=== PATIENT | male | born 1965 | race Caucasian/White ===

== ENCOUNTER 2020-11-16 07:27 | Emergency (ER) | payer OTHER, SELFPAY ==
--- NOTE | ~2020-11-16 | XR_ITS ---
EXAMINATION: XR chest 1V portable INDICATION: Shortness of breath and cough TECHNIQUE: Portable AP chest at 0821 hours COMPARISON: None available FINDINGS: There are minimal airspace opacities of the lung bases. No pleural effusion or pneumothorax is identified. The cardiomediastinal silhouette is normal. IMPRESSION: 1. Minimal airspace opacities of the lung bases, consistent with atelectasis versus pneumonia. Reviewed, dictated and finalized at location A. IMPRESSION: 1. Minimal airspace opacities of the lung bases, consistent with atelectasis ve rsus pneumonia.
[2020-11-16 07:33] VITALS: BP 183/105; PULSE 86; RESP 18; TEMP 36.6; O2SAT 98
--- NOTE | 2020-11-16 07:45 | ED.URI ---
HPI - URI/Sore Throat General Chief Complaint: Upper Respiratory Infection Stated Complaint: cough, sore throat, runny nose Time Seen by Provider: 11/16/20 07:45 Source: patient and RN notes reviewed Mode of arrival: ambulatory Limitations: no limitations History of Present Illness HPI Narrative: 54 years old white male presents with coughing, sore throat, headache, body aches started yesterday. Patient is not vaccinated for COVID-19. Patient does not know if he been exposed to anybody with Covid or not. Patient denies any fever, chills, nausea, vomiting, chest pain or shortness of breath. Related Data Allergies Allergy/AdvReac Type Severity Reaction Status Date / Time Careless [place] Allergy Mild POISON Uncoded 11/16/20 07:44 FREDERICK SCHAFER AND MAXI Review of Systems Review of Systems: CONSTITUTIONAL: Denies fever, chills, or sweats. EYES: Denies visual changes, redness, or discharge. ENT: Denies rhinorrhea, congestion, sore throat, or otalgia. CARDIOVASCULAR: Denies chest pain, palpitations, or edema. RESPIRATORY: Denies cough or dyspnea. GASTROINTESTINAL: Denies abdominal pain, nausea, vomiting, or diarrhea. GENITOURINARY: Denies dysuria or hematuria. SKIN: Denies rash or itching. MUSCULOSKELETAL: Denies back pain, joint pain, or myalgia. NEUROLOGIC: Denies headache, numbness, or weakness. PSYCHIATRIC: Denies anxiety or depression. Exam Narrative: General appearance: Well-developed, well-nourished Skin: Normal color Head: Normocephalic, nontraumatic Eyes: Clear conjunctiva ENT: Oropharynx normal, ears normal, nose normal Neck: Supple, nontender Chest and respiratory: Airway patent, no respiratory distress, no accessory muscle use Heart: Regular rate/rhythm Abdomen: Soft, nontender, no organomegaly, quiet bowel sounds Neurologic: Alert and oriented ?3, BANK GUARD is normal as tested, no gross motor deficit Course Course Emergency Course: Stable Vital Signs Vital signs: Vital Signs Temperature 36.6 C 11/16/20 07:33 Pulse Rate 86 11/16/20 07:33 Respiratory Rate 18 11/16/20 07:33 Blood Pressure 183/105 H 11/16/20 07:33 Pulse Oximetry 98 11/16/20 07:33 Temperature 36.6 C 11/16/20 07:33 Pulse Rate 86 11/16/20 07:33 Respiratory Rate 18 11/16/20 07:33 Blood Pressure 183/105 H 11/16/20 07:33 Pulse Oximetry 98 11/16/20 07:33 MDM - URI/Sore Throat MDM Narrative Medical decision making narrative: Upper respiratory viral infection Lab Data Labs: Lab Results 11/16/20 Range/Units 07:53 SARS-CoV-2 RNA (RT-PCR) Pending ABG Data ABG results: 11/16/20 08:09 Puncture Site Right brachial ABG pH 7.393 ABG pCO2 36.6 ABG pO2 78.6 L ABG PO2/FiO2 Ratio 3.74 ABG HCO3 21.8 L ABG O2 Saturation 95.6 ABG O2 Content 21.5 ABG Base Excess -2.5 A-a Gradient 27.3 Oxyhemoglobin 92.7 Total Hemoglobin 16.5 O2 Delivery Device Room air O2 Liters/Min Not Reportable FiO2 21 Imaging Data Radiologist's impression: Impressions Chest X-Ray 11/16/20 08:30 IMPRESSION: 1. Minimal airspace opacities of the lung bases, consistent with atelectasis versus pneumonia. Critical Care Time Critical Care Time Critical Care Time: No Discharge Plan Discharge Clinical Impression: Upper respiratory infection Qualifiers: URI type: unspecified viral URI Qualified Code(s): J06.9 - Acute upper respiratory infection, unspecified Patient Disposition: Home, Self-Care Condition: Stable Instructions: Antibiotic Form, Upper Respiratory Infection (ED) Additional Instructions: Return if symptoms are worsening , call your family physician for appointment, take Tylenol as
[2020-11-16 08:20] LABS: Alveolar/Arterial O2 Gradient 27.3 mmHg; Base Excess ABG -2.5 mEq/l (+/-2.0); Fractional Inspired Oxygen 21 %; HCO3 ABG 21.8 mEq/l (22.0-26.0); Oxygen Content ABG 21.5 %vol (16.0-22.0); Oxygen Saturation ABG 95.6 % (95.0-100.0); Oxyhemoglobin 92.7 % THb (90.0-100.0); PCO2 ABG 36.6 mmHg (35.0-45.0); PO2 ABG 78.6 mmHg (80.0-100.0); PO2 FiO2 Ratio Arterial Blood 3.74 %; Total Hemoglobin 16.5 g/dL (12.0-18.0); pH ABG 7.393 (7.350-7.450)
[2020-11-16 08:21] LABS: Device ROOM AIR; Site Drawn RIGHT BRACHIAL
[2020-11-16 09:17] VITALS: BP 165/101; PULSE 91; RESP 21; O2SAT 98
[2020-11-16 09:19] VITALS: BP 165/101; PULSE 91; RESP 21; O2SAT 98
[2020-11-16 17:52] LABS: SARS-CoV-2 RNA PCR Negative
== END 2020-11-16 09:24 | disposition home or self-care (01) ==
PROVIDERS: Emergency Provider Emergency Medicine
DX: J06.9 Acute upper respiratory infection, unspecified (principal); Z20.822 Contact with and (suspected) exposure to COVID-19; R91.8 Other nonspecific abnormal finding of lung field
CPT/HCPCS: 36600; 71045; 82805; 99283; C9803; U0003; U0005

== ENCOUNTER 2022-12-06 19:08 | Observation (INO) | payer OTHER, SELFPAY ==
[2022-12-06] VITALS (9 sets, daily range): BP systolic 123–191; BP diastolic 92–118; PULSE 81–100; RESP 13–23; TEMP 36.7; O2SAT 95–99
--- NOTE | ~2022-12-06 | XR_ITS ---
Portable chest x-ray Comparison: 11/16/2020 Clinical History: Chest pain Findings: Lungs are clear, without focal consolidation or pleural effusion. Cardiomediastinal silho uette is stable. Bones and soft tissues are unremarkable. Impression: Clear lungs. Reviewed, dictated and finalized at location . Impression: Clear lungs.
--- NOTE | ~2022-12-06 | CT_ITS ---
Clinical Indication: Dissection CT Scan of the Chest, Abdomen, and Pelvis with Contrast: Technique: Contiguous sections were acquired throughout the chest, abdomen, and pelvis after intraven ous administration of 100 cc of Omnipaque 350. Dose reduction technique was used on this scan by brina bermaning automated exposure control and iterative reconstruction technique. The dose-length product (DL P) was 916.95 mGy-cm. Findings: There is no evidence of any significant mediastinal, hilar or axillary lymphadenopathy. The mediastin al soft tissues appear normal. No aortic aneurysm or dissection. There is no evidence of pleural or pericardial effusion. The lungs are clear. No pulmonary nodules or infiltrates are noted. The liver, spleen, pancreas, gallbladder, adrenals and kidneys are within normal limits. No evidence of aortic aneurysm or dissection. No lymphadenopathy. No bowel obstruction or bowel wall thickening. There is no evidence to suggest acute appendicitis. Urinary bladder is unremarkable. No pelvic mass seen. No ascites. Impression: No significant abnormalities seen. No evidence for aortic dissection. Reviewed, dictated and finalized at [facility]. Impression: No significant abnormalities seen. No evidence for aortic dissection.
--- NOTE | 2022-12-06 19:08 | ECG_ITS ---
Measurements Intervals [place] Rate: 93 P: 33 MS: 195 QRS: -1 QRSD: 95 T: 74 QT: 343 QTc: 427 Interpretive Statements SINUS RHYTHM CANNOT RULE OUT SEPTAL INFARCT, AGE INDETERMINATE BORDERLINE ST-T WAVE ABNORMALITY- HIGH LATERAL LEADS ABNORMAL ECG NO PREVIOUS ECG AVAILABLE FOR COMPARISON Electronically Signed On 12-06-2022 20:57:48 CDT by Tigre Bhatia D.O.
--- NOTE | 2022-12-06 19:29 | PC.NURSE ---
Pt taken to a room, EDP notified of pt cc and VS.
--- NOTE | 2022-12-06 19:38 | PC.NURSE ---
VORB by BJORN Gold RN to give pt sublingual nitro x3 until chest pain is relieved. See notes for med administration.
--- NOTE | 2022-12-06 19:41 | PC.NURSE ---
Pt rated chest pain a 5 and stated that it is continuous.
[2022-12-06 19:45] LABS: Basophils Absolute Auto 0.1 K/mm3 (0.0-0.1); Basophils Percent Auto 0.6 % (0.2-1.2); Eosinophils Absolute Auto 0.4 K/mm3 (0-0.3); Eosinophils Percent Auto 2.6 % (0-4.4); Hematocrit 49.3 % (42.0-52.0); Hemoglobin 16.7 g/dL (14.0-18.0); Immature Granulocyte Absolute 0.07 K/mm3 (0.00-0.031); Immature Granulocyte Percent A 0.5 % (0-0.5); Lymphocytes Absolute Auto 1.76 K/mm3 (0.9-3.2); Lymphocytes Percent Auto 13.3 % (18.3-44.2); Mean Corpuscular HGB Conc 33.9 g/dl (32-36); Mean Corpuscular Hemoglobin 31.9 pg (26-34); Mean Corpuscular Volume 94.1 fl (80-100); Mean Platelet Volume 9.7 fl (7.4-10.4); Monocytes Percent Auto 7.4 % (2.6-8.5); Neutrophils Percent Auto 75.6 % (45.5-73.1); Platelet Count Result 276 k/mm3 (150-375); Red Blood Count 5.24 M/mm3 (4.6-6.20); White Blood Count 13.2 K/mm3 (4.5-10.0)
--- NOTE | 2022-12-06 19:47 | ECG_ITS ---
Measurements Intervals [place] Rate: 100 P: 45 [place]: 184 QRS: 18 QRSD: 97 T: 79 QT: 336 QTc: 434 Interpretive Statements SINUS TACHYCARDIA CANNOT RULE OUT SEPTAL INFARCT, AGE INDETERMINATE BORDERLINE ST-T WAVE ABNORMALITY- HIGH LATERAL LEADS ABNORMAL ECG COMPARED TO ECG 12/06/2022 19:12:27 SINUS TACHYCARDIA NOW PRESENT Electronically Signed On 12-07-2022 8:07:40 CDT by Tigre Bhatia D.O.
--- NOTE | 2022-12-06 19:50 | PC.NURSE ---
Pt rated chest pain at a 2. Bp 122/96. Heart rate 109. Respirations 20.
[2022-12-06 19:56] LABS: Alanine Aminotransferase 35 U/L (6-50); Albumin Level 4.7 g/dL (3.5-5.1); Alkaline Phosphatase 104 U/L (38-126); Anion Gap 10 mmol/L (8-16); Aspartate Amino Transferase 38 U/L (17-59); Bilirubin,Total 0.6 mg/dL (0.2-1.3); Blood Urea Nitrogen 8 mg/dL (9-20); Calcium 9.1 mg/dL (8.4-10.2); Carbon Dioxide 26 mmol/L (22-30); Chloride 102 mmol/L (98-107); Estimated CRCL calculation 74 ml/min; Estimated Glomerular Filt Rate > 60; Glucose 107 mg/dL (65-110); Lipase 390 U/L (23-300); Potassium 4.5 mmol/L (3.4-5.0); Sodium 138 mmol/L (137-145)
--- NOTE | 2022-12-06 20:06 | PC.NURSE ---
YAMEL from BJORN Theodore RN to bandar
[2022-12-06 20:08] LABS: Troponin I < 0.012 ng/mL (0.000-0.034)
[2022-12-06] MEDS: ASPIRIN 81 MG CHEWABLE TABLET 324 MG PO (20:36)
[2022-12-06] MEDS: MORPHINE SULFATE (*CRX) 4 MG/ML INJ IV PUSH (20:37)
[2022-12-06] MEDS: METOPROLOL TARTRATE 25 MG TABLET PO (20:38)
--- NOTE | 2022-12-06 20:45 | ED.GENADULT ---
HPI - General Adult General Chief complaint: Chest Pain Stated complaint: Chest pain Time Seen by Provider: 12/06/22 19:29 History of Present Illness HPI narrative: This is a 56-year-old male presenting ED with a chief complaint of chest pain. Patient says that around 2:00 a.m. today while he was at work he started developed a pressure like pain in the center of his chest. It is nonradiating 5 out 10 intensity and constant. He has never had pain like this before and there are no exacerbating or alleviating symptoms. It is not associated with nausea vomiting diaphoresis. It did occur while he was working strenuously at his job. Patient has not seen a doctor in 30 years. He is a daily drinker and smokes a pack of cigarettes per day. Patient denies fevers chills URI symptoms shortness of breath abdominal pain nausea vomiting diarrhea, denies neurologic symptoms. Related Data Allergies Allergy/AdvReac Type Severity Reaction Status Date / Time Careless [place] Allergy Mild POISON Uncoded 12/06/22 19:46 GILMAR, SUMAC AND [place] Exam Narrative: APPEARANCE: No apparent distress. Head: atraumatic. EYES: EOMI, NOSE: Atraumatic NECK: Trachea midline RESPIRATORY: No increased rate of breathing , clear to auscultation CARDIOVASCULAR: RRR, +2 pulses in all extremities, no peripheral edema ABDOMINAL: Non-distended MUSCULOSKELETAl: No obvious deformities NEURO: Alert. Cranial nerves 2-12 grossly intact. Sensation light touch, motor function cerebellar function intact for 4 extremities. SKIN:: Warm, dry. Normal color PSYCHIATRIC: Normal affect Course Vital Signs Vital signs: Vital Signs Temperature 98.1 F 12/06/22 19:16 Pulse Rate 95 12/06/22 19:16 Respiratory Rate 18 12/06/22 19:16 Blood Pressure 170/114 H 12/06/22 19:16 Pulse Oximetry 97 12/06/22 19:16 Oxygen Delivery Room Air 12/06/22 19:16 Temperature 98.1 F 12/06/22 19:16 Pulse Rate 81 12/06/22 23:28 Respiratory Rate 20 12/06/22 23:28 Blood Pressure 123/92 H 12/06/22 23:28 Pulse Oximetry 96 12/06/22 23:28 Oxygen Delivery Room Air 12/06/22 21:00 Medical Decision Making [facility] Narrative Medical decision making narrative: -Course: 56-year-old male presenting with chest pain. History and physical concerning for ACS. EKG showed nonspecific T-wave changes in 1 in aVL. Troponins negative x2. Chest pain improved with nitroglycerin. Given Metoprolol tartrate PO for hypertension. Upon re-evaluation the patient's chest pain is improved but is not resolved. Patient does not have follow-up or primary care physician. Heart score =4. Patient be admitted the hospital for cardiac evaluation. 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 Metabolic panel normal. Troponins undetectable x2. Viral swabs negative. CTA chest abdomen pelvis negative. Chest x-ray was unremarkable. Independent EKG interpretation: Rhythm [sinus], Rate [93], [place] -[normal], [place] -[normal], QRS [narrow], QTC [normal], T waves -[negative for concerning inversions], ST Segments - [Negative for concerning elevations] Final interpretations: nonspecific changes in 1 aVL - no previous EKGs to compare to. -Discussion of Management/Consultants: Jigar-Hospitalist, Shilo - Ship Engines Operating Engineer -Interventions: 325 aspirin, nitro 0.4 mg, 4 mg morphine, 25 mg metoprolol tartrate, Maalox -Shared decision making / Disposition: heart score 4. Patient will be admitted for cardiac eval. Vital Signs Vital Signs: Vital Signs Temperature 98.1 F 12/06/22 19:16 Pulse Rate 95 12/06/22 19:16 Res
[2022-12-06 20:53] LABS: Prothrombin Time 13.3 Seconds (11.1-14.7)
[2022-12-06 20:54] LABS: Partial Thromboplastin Time 31.5 SECONDS (22.3-36.8)
[2022-12-06 21:16] LABS: Influenza A QL RT-PCR Negative (Negative); Influenza B QL RT-PCR Negative (Negative); RSV RNA, RT-PCR Negative (Negative); SARS-CoV-2 RNA PCR Negative (Negative)
[2022-12-06] MEDS: MAG HYDROX/AL HYDROX/SIMETH 30 ML UDC PO (21:57)
[2022-12-06 22:44] LABS: Troponin I < 0.012 ng/mL (0.000-0.034)
[2022-12-07] VITALS (17 sets, daily range): BP systolic 129–178; BP diastolic 84–93; PULSE 56–78; RESP 16–20; TEMP 36–36.7; O2SAT 94–98; BMI 28.2
--- NOTE | 2022-12-07 00:59 | ADMGEN ---
This patient, Nathan Agee, was admitted to IMU Room 21151 . Patient/family oriented to hospital policies and general routines including ID bracelet, bed and alarms, visiting hours, pain management, procedures, bathroom and other care routines, personal items, smoking policy, room service/diet, and visiting hours. Information on how to activate the Rapid Response Team has been discussed. Patient/Family are encouraged to report perceived risks to care and to ask questions if they do not understand what they are told or what they should do.
[2022-12-07 01:59] LABS: Troponin I < 0.012 ng/mL (0.000-0.034)
--- NOTE | 2022-12-07 02:59 | PM.IMHP ---
H&P: HPI History of Present Illness Date/Time: 12/07/22 02:59 Chief Complaint: Chest pain Narrative: 56-year-old male with a past medical history of heavy alcohol use and chronic tobacco use who presented to the ER with chest pain. 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 Today while he was at work he did briefly feel a little lightheaded but did not pass out and did not have chest pain. A little bit later in the day he was on the floor board of a truck extracting some thing from under the-and when he went to sit up he developed substernal chest pain. He reported that the pain was 5/10 in intensity. The pain was worse with deep breathing. He did not have any diaphoresis nausea or vomiting. He denied any radiation of the pain. He has not had any cough or congestion be on his usual smoker's cough. He denies any fevers or chills. The pain was constant and did not seem to get any better. He came to the ER for evaluation. He received nitroglycerin and morphine. ER staff reported the patient's pain decreased down to a 2/10 with the nitroglycerin. However, interestingly enough the patient's medication administration record does not demonstrate any nitroglycerin administration. The patient did receive aspirin and morphine as well as a GI cocktail. He denies any reflux symptoms heartburn or dysphagia. He denies any paroxysmal nocturnal dyspnea orthopnea or lower extremity edema. Patient was significantly hypertensive in the ER and received 2 doses of metoprolol with improvement in his blood pressures. The patient denies a known history of hypertension but does not check his blood pressure home and has not seen a doctor in 30 years. He did report feeling quite anxious before came to the ER and thought that that was well was driving his blood pressure up. Review of Systems Review of Systems: 12 systems were reviewed with pertinent positives and negatives per HPI. Except as documented in the HPI, all other systems were reviewed and are negative. [facility] Past Medical History Medical History (Updated 12/07/22 @ 03:13 by Tosha Kimball DO) Heavy alcohol use 5 beers a day Tobacco use disorder, continuous Surgical History Surgical History (Updated 12/07/22 @ 03:05 by Tosha Kimball DO) No history of previous surgery Family History Family History (Updated 12/07/22 @ 03:06 by Tosha Kimball DO) Mother , in her late 70s Arthritis Father , He thinks he in his mid 60s but he is unsure as he was estranged from his father Heart disease reports father passed from unknown cardiac problem Social History Social History (Updated 12/07/22 @ 03:08 by Tosha Kimball DO) Social History: He reports that he is . He lives with his ex-'s mother who is in her 90s. He helps her with work around the house. 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 He has 1 son. He has smoked a pack per day since he was 22 years old. He drinks about 5 beers a day. He denies illicit substance use. Code status: Full code Surrogate decision maker: Merly Agee (ex-) Smoking packs per day: 1 Smoking cigarettes per day: 20.0 Years smoked: 34 Smoking pack-years: 34.00 Smoking status: Current every day smoker Tobacco type: cigarettes Second hand tobacco smoke exposure: No Alcohol intake: current Drinks per week: 28 Alcohol use details: 5 beers a day Substance use: never Lack of Transportation: No Lack of Food: Never True Current Housing: I Have Housing Concerned About Future Housing: No Difficulty Paying Gas/Electric Bills: No Difficulty Paying for Meds: No Currently Unemployed: No Education: High School Diploma/GED Difficulty w/ Childcare or Family Care: No Spiritual care concerns: No Meds Home Medications and Allergies Home Medications Medication Instructions R
[2022-12-07 05:20] LABS: Triglycerides 705 mg/dL (<150)
[2022-12-07 05:21] LABS: Cholesterol 254 mg/dL (0-200); LDL Cholesterol Direct 94 mg/dL
--- NOTE | 2022-12-07 07:29 | PM.IMPN ---
Progress Note: A&P Assessment and Plan (1) Chest pain: Qualifiers: Chest pain type: chest pain on breathing Qualified Code(s): R07.1 - Chest pain on breathing Code(s): R07.9 - Chest pain, unspecified Status: Acute (2) Tobacco use disorder, continuous: Code(s): F17.209 - Nicotine dependence, unspecified, with unspecified nicotine-induced disorders Status: Acute (3) Hypertension: Qualifiers: Hypertension type: unspecified Qualified Code(s): I10 - Essential (primary) hypertension Code(s): I10 - Essential (primary) hypertension Status: Acute (4) Heavy alcohol use: Code(s): F10.90 - Alcohol use, unspecified, uncomplicated Status: Acute Plan Chest pain Patient's chest pain was initially however times does more typical chest pain in a patient with multiple cardiac risk factors. Given the initial reported requested cardiology consult for possible angina type picture. Serial troponins have been negative x3. he will likely need to stay until Wednesday for cardiac stress test will start the patient on 81 mg enteric-coated aspirin daily for prophylaxis. And check a lipid panel in a.m.. Appreciate cardiology consultation, stress test is scheduled Alcohol withdrawal Uncontrolled hypertension, Wednesday, tachycardia Possible alcohol withdrawal syndrome patient's blood pressure improved after 50 mg of metoprolol in the ER. now on 12.5 mg of metoprolol b.i.d. Monitor and management alcohol withdrawal per [facility] protocol Alcohol abuse The patient drinks 5 alcoholic beverages a day. discussed with him the importance of cutting back on his alcohol use recommended to 2 or less a day. Start thiamine folic acid p.o. Tobacco abuse Patient does smoke tobacco daily. He is not interested in quitting smoking at this time. He states that he does not need a nicotine patch Leukocytosis Patient is afebrile, CT chest abdomen pelvis shows no acute cardiopulmonary or intra-abdominal abnormality Follow-up CBC Patient has been admitted as observation status. Patient being monitored as observation in the IMU. Subjective Date/time seen: 12/07/22 07:29 Interval history: I saw and examined the patient. Patient denies chest pain when I saw exam patient morning. Patient denies vision hallucination, headache, nausea vomiting. Exam Narrative: GENERAL: Pleasant, in no acute distress. Well-nourished. - EYES: EOMI. Anicteric. - HENT: Moist mucous membranes. - LUNGS: Clear to auscultation bilaterally, no wheezing, rhonchi, or rales. - CARDIOVASCULAR: Regular rate and rhythm. No murmur. No JVD. - ABDOMEN: Soft, non-tender and non-distended. No palpable masses. - EXTREMITIES: No edema. Peripheral pulses 2+. Non-tender. - NEUROLOGIC: No focal neurological deficits. CN II-XII grossly intact. - PSYCHIATRIC: Awake, Alert and oriented x 3. Appropriate mood and affect. - SKIN: No rashes or lesions. Warm. - LYMPH: No cervical lymphadenopathy. Objective Data Vital Signs Vital Signs: Vital Signs - 24 hr 12/06/22 19:16 12/06/22 19:29 12/06/22 19:31 Temperature 98.1 F Pulse Rate 95 97 Respiratory Rate 18 Blood Pressure 170/114 H Pulse Oximetry 97 99 Oxygen Delivery Room Air Room Air 12/06/22 19:33 12/06/22 19:33 12/06/22 19:38 Temperature Pulse Rate 100 97 98 Respiratory Rate 16 13 21 H Blood Pressure 191/107 H 191/118 H 171/112 H Pulse Oximetry 98 98 96 Oxygen Delivery 12/06/22 20:38 12/06/22 21:16 12/06/22 23:28 Temperature Pulse Rate 100 98 81 Respiratory Rate 23 H 20 Blood Pressure 159/101 H 123/92 H Pulse Oximetry 97 96 Oxygen Delivery 12/06/22 21:00 12/07/22 01:01 12/07/22 01:11 Temperature 97.4 F L Pulse Rate 70 78 Respiratory Rate 16 Blood Pressure 136/87 Pulse Oximetry 95 96 Oxygen Delivery Room Air 12/07/22 02:00 12/07/22 04:00 12/07/22 04:00 Temperature 97.9 F Pulse Rate 68 67 73
[2022-12-07 08:25] LABS: Alanine Aminotransferase 29 U/L (6-50); Albumin Level 4.1 g/dL (3.5-5.1); Alkaline Phosphatase 103 U/L (38-126); Anion Gap 11 mmol/L (8-16); Aspartate Amino Transferase 37 U/L (17-59); Bilirubin,Total 0.9 mg/dL (0.2-1.3); Blood Urea Nitrogen 8 mg/dL (9-20); Calcium 8.7 mg/dL (8.4-10.2); Carbon Dioxide 24 mmol/L (22-30); Chloride 100 mmol/L (98-107); Estimated CRCL calculation 67 ml/min; Estimated Glomerular Filt Rate > 60; Glucose 95 mg/dL (65-110); Potassium 4.1 mmol/L (3.4-5.0); Sodium 135 mmol/L (137-145)
[2022-12-07 08:26] LABS: Basophils Absolute Auto 0.1 K/mm3 (0.0-0.1); Basophils Percent Auto 0.8 % (0.2-1.2); Eosinophils Absolute Auto 0.3 K/mm3 (0-0.3); Eosinophils Percent Auto 2.6 % (0-4.4); Hematocrit 46.8 % (42.0-52.0); Hemoglobin 15.6 g/dL (14.0-18.0); Immature Granulocyte Absolute 0.06 K/mm3 (0.00-0.031); Immature Granulocyte Percent A 0.6 % (0-0.5); Lymphocytes Absolute Auto 1.82 K/mm3 (0.9-3.2); Lymphocytes Percent Auto 18.4 % (18.3-44.2); Mean Corpuscular HGB Conc 33.3 g/dl (32-36); Mean Corpuscular Hemoglobin 31.8 pg (26-34); Mean Corpuscular Volume 95.5 fl (80-100); Mean Platelet Volume 9.9 fl (7.4-10.4); Monocytes Percent Auto 9.8 % (2.6-8.5); Neutrophils Absolute Auto 6.7 K/mm3 (1.3-6.7); Neutrophils Percent Auto 67.8 % (45.5-73.1); Platelet Count Result 253 k/mm3 (150-375); Red Cell Distribution Width 13.1 % (11.5-14.5); White Blood Count 9.9 K/mm3 (4.5-10.0)
[2022-12-07] MEDS: ENOXAPARIN 40 MG/0.4 ML SYRINGE SUB-Q (08:31)
[2022-12-07] MEDS: METOPROLOL TARTRATE 12.5 MG TABLET PO ×2 (08:31→20:48)
[2022-12-07] MEDS: FOLIC ACID 1 MG TABLET PO (08:31)
[2022-12-07] MEDS: THIAMINE HCL 100 MG TABLET PO (08:31)
[2022-12-07] MEDS: ASPIRIN 81 MG ENTERIC TABLET PO (08:32)
--- NOTE | 2022-12-07 10:39 | PM.CNCAR ---
Assessment and Plan Assessment and plan (1) Chest pain: Qualifiers: Chest pain type: chest pain on breathing Qualified Code(s): R07.1 - Chest pain on breathing Code(s): R07.9 - Chest pain, unspecified Status: Acute Plan This is a 56-year-old man with chest pain that seems to be chest wall pain occurring after being under the dashboard of a truck and then twisting to get out from under there he has been having pain now for the last couple of days. There is no evidence of acute coronary syndrome. He does have risk factors for coronary disease including longstanding cigarette smoking. He should probably have screening for coronary disease in the way of a stress test. This could be done as an outpatient or as an inpatient since he has ruled out for acute coronary syndrome. He would like to stay in the hospital and get this done tomorrow morning. I will arrange for stress echocardiography tomorrow morning hopefully that will look favorable he can be discharged. Of course we did discuss the importance of smoking cessation. Zachary Liu MD [facility] History of Present Illness History of Present Illness Consult date/time: 12/07/22 10:39 Reason For Visit: Chest pain Narrative: This is a 56-year-old man I am seeing at the request of the hospitalist today for assistance with evaluation and management of chest pain. He is unknown to me and is not known to have any cardiac problems prior to this admission to the hospital. He actually has not seen a physician for any medical attention for at least 2 or 3 decades. 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 The patient has a very physically demanding job working in a [employer]. He carries on heavy activity and manual exertional activities of at work which are generally not unusual for him and he does not provoke any chest pain when he exerts himself. He was working under the dashboard of a truck and was twisting to get out of under the dashboard have any finished his job and he started to feel some chest pain any when he stood up. The pain was a sharp substernal sensation that did worsen with deep breathing he became concerned about this later in the day he called his ex- who drove him to the hospital and he was evaluated last night in the emergency room. By the time he was there he was having this symptom for about 5 or 6 hours. His electrocardiogram looked benign his troponin levels were negative. He still has some of this discomfort if he takes a deep breath this morning he otherwise appears to be comfortable and does not have any significant complaints at this time. He is not known to have hypertension diabetes or dyslipidemia. He does smoke a pack per day and drinks a 6 pack of beer a day. He was on no medications at home prior to coming in the hospital Review of Systems Constitutional: Constitutional: Reports no additional constitutional complaints Eyes: Eyes: Reports no additional eye complaints ENT: Reports system reviewed and no additional complaints, except as documented Cardiovascular: Cardiovascular: Reports as per HPI Respiratory: Respiratory: Reports no additional respiratory complaints Gastrointestinal: Gastrointestinal: Reports no additional gastrointestinal complaints Musculoskeletal: Musculoskeletal: Reports no additional musculoskeletal complaints Integumentary/Breasts: Skin/Breast: Reports system reviewed and no additional complaints, except as docu Neurologic: Reports system reviewed and no additional complaints, except as documented Endocrine: Endocrine: Reports no additional endocrine complaints Hematologic/Lymphatic: Hematologic/Lymphatic: Reports no additional hematologic/lymphatic complaints Allergic/Immunologic: Allergic/Immunologic: Reports no additional allergic/immunologic complaints [facility] Past Medical History Medical
[2022-12-08] VITALS (11 sets, daily range): BP systolic 147–160; BP diastolic 95–104; PULSE 52–70; RESP 14–20; TEMP 36.1–36.6; O2SAT 96–100
--- NOTE | 2022-12-08 | EST_ITS ---
Patient Info Name: Nathan Agee Age: 56 years : 1965 Gender: Male Ht: 66 in Wt: 174 lbs BSA: 1.94 m2 HR: 56 bpm BP: 166 / 102 mmHg Exam Date: 12/08/2022 10:13 AM Exam Location: [facility] Patient Status: Outpatient Admit Date: 12/07/2022 Staff Ordering Physician: Zachary Liu MD Speech Writer: Sandra Carranza RDCS Attending Provider: Tosha Kimball DO Referring Physician: Alexa FRAGA; Exam Type: CA stress echo Study Info Indications R07.89 - Other chest pain Summary 1. No abnormal ST/T wave changes diagnostic of ischemia with exercise. However, target heart rate was not met. 2. Good functional capacity, achieving 10.6 METs of workload. 3. Hypertensive blood pressure response to exercise. 4. Normal augmentation of all wall segments without evidence of ischemia with stress. However, target heart rate was not met during stress test. 5. Stress test supervised by Jeniffer Sun NP. Stress test interpreted by Renzo Peralta MD. Stress Echo Findings Left Ventricle Normal left venticular systolic function with no regional wall motion abnormalities noted at rest. Normal augmentation of all wall segments without evidence of ischemia with stress. However, target heart rate was not met during stress test. Protocol: [place] HR: 62 bpm Peak HR: 105 bpm Rest Sys BP: 166 mmHg Peak Sys BP: 218 mmHg Max Pred HR: 166 bpm % Max Pred HR: 63 % Target HR: 141 bpm Max RPP: 22,890 bpm*mmHg BP Response: Patient exhibited a hypertensive response with stress Total Time: 9 min : 14 sec Rest Long BP: 102 mmHg Peak Long BP: 98 mmHg Total METS: 10.6 Resting ECG Sinus rhythm. Stress ECG Sinus tachycardia. No abnormal ST/T wave changes diagnostic of ischemia with exercise. However, target heart rate was not met. Arrhythmias None. Report Signatures Amended by Renzo Peralta MD on 12/08/2022 14:01 Stress ECG Echo
[2022-12-08 05:23] LABS: Basophils Absolute Auto 0.1 K/mm3 (0.0-0.1); Basophils Percent Auto 1.1 % (0.2-1.2); Eosinophils Absolute Auto 0.4 K/mm3 (0-0.3); Eosinophils Percent Auto 5.8 % (0-4.4); Hematocrit 47.2 % (42.0-52.0); Hemoglobin 15.8 g/dL (14.0-18.0); Immature Granulocyte Absolute 0.04 K/mm3 (0.00-0.031); Immature Granulocyte Percent A 0.6 % (0-0.5); Lymphocytes Absolute Auto 1.92 K/mm3 (0.9-3.2); Lymphocytes Percent Auto 29.4 % (18.3-44.2); Mean Corpuscular HGB Conc 33.5 g/dl (32-36); Mean Corpuscular Hemoglobin 31.8 pg (26-34); Mean Platelet Volume 9.9 fl (7.4-10.4); Monocytes Absolute Auto 0.7 K/mm3 (0.1-0.6); Monocytes Percent Auto 10.4 % (2.6-8.5); Neutrophils Absolute Auto 3.5 K/mm3 (1.3-6.7); Neutrophils Percent Auto 52.7 % (45.5-73.1); Platelet Count Result 233 k/mm3 (150-375); Red Blood Count 4.97 M/mm3 (4.6-6.20); Red Cell Distribution Width 12.6 % (11.5-14.5); White Blood Count 6.5 K/mm3 (4.5-10.0)
[2022-12-08 05:41] LABS: Alanine Aminotransferase 27 U/L (6-50); Alkaline Phosphatase 89 U/L (38-126); Anion Gap 9 mmol/L (8-16); Aspartate Amino Transferase 28 U/L (17-59); Bilirubin,Total 0.8 mg/dL (0.2-1.3); Blood Urea Nitrogen 13 mg/dL (9-20); Calcium 8.7 mg/dL (8.4-10.2); Carbon Dioxide 23 mmol/L (22-30); Chloride 102 mmol/L (98-107); Estimated CRCL calculation 67 ml/min; Estimated Glomerular Filt Rate > 60; Glucose 92 mg/dL (65-110); Potassium 3.9 mmol/L (3.4-5.0); Sodium 134 mmol/L (137-145)
--- NOTE | 2022-12-08 09:04 | PM.IMPN ---
Progress Note: A&P Assessment and Plan (1) Chest pain: Qualifiers: Chest pain type: chest pain on breathing Qualified Code(s): R07.1 - Chest pain on breathing Code(s): R07.9 - Chest pain, unspecified Status: Acute (2) Tobacco use disorder, continuous: Code(s): F17.209 - Nicotine dependence, unspecified, with unspecified nicotine-induced disorders Status: Acute (3) Hypertension: Qualifiers: Hypertension type: unspecified Qualified Code(s): I10 - Essential (primary) hypertension Code(s): I10 - Essential (primary) hypertension Status: Acute (4) Heavy alcohol use: Code(s): F10.90 - Alcohol use, unspecified, uncomplicated Status: Acute Plan Chest pain Patient's chest pain was initially however times does more typical chest pain in a patient with multiple cardiac risk factors. Given the initial reported requested cardiology consult for possible angina type picture. Serial troponins have been negative x3. he will likely need to stay until Wednesday for cardiac stress test start the patient on 81 mg enteric-coated aspirin daily for prophylaxis. Appreciate cardiology consultation, stress test is negative Alcohol withdrawal Uncontrolled hypertension, Wednesday, tachycardia Possible alcohol withdrawal syndrome yesterday patient's blood pressure improved after 50 mg of metoprolol in the ER. now on 12.5 mg of metoprolol b.i.d. Monitor and management alcohol withdrawal per CIWA protocol No sign of alcohol withdrawal now Alcohol abuse The patient drinks 5 alcoholic beverages a day. discussed with him the importance of cutting back on his alcohol use recommended to 2 or less a day. Start thiamine folic acid p.o. Tobacco abuse Patient does smoke tobacco daily. He is not interested in quitting smoking at this time. He states that he does not need a nicotine patch Leukocytosis Patient is afebrile, CT chest abdomen pelvis shows no acute cardiopulmonary or intra-abdominal abnormality Follow-up CBC Patient has been admitted as observation status. Patient being monitored as observation in the IMU. Subjective Date/time seen: 12/08/22 09:04 Interval history: I saw and examined the patient. Patient denies chest pain short of breath, palpitation, abdomen, nausea vomiting. Patient is afebrile hemodynamically stable Exam Narrative: GENERAL: Pleasant, in no acute distress. Well-nourished. - EYES: EOMI. Anicteric. - HENT: Moist mucous membranes. - LUNGS: Clear to auscultation bilaterally, no wheezing, rhonchi, or rales. - CARDIOVASCULAR: Regular rate and rhythm. No murmur. No JVD. - ABDOMEN: Soft, non-tender and non-distended. No palpable masses. - EXTREMITIES: No edema. Peripheral pulses 2+. Non-tender. - NEUROLOGIC: No focal neurological deficits. CN II-XII grossly intact. - PSYCHIATRIC: Awake, Alert and oriented x 3. Appropriate mood and affect. - SKIN: No rashes or lesions. Warm. - LYMPH: No cervical lymphadenopathy. Objective Data Vital Signs Vital Signs: Vital Signs - 24 hr 12/07/22 10:00 12/07/22 12:00 12/07/22 12:00 Temperature 96.8 F L Pulse Rate 61 60 59 L Respiratory Rate 20 Blood Pressure 160/93 H Pulse Oximetry 95 Oxygen Delivery 12/07/22 14:00 12/07/22 16:00 12/07/22 16:00 Temperature 97.8 F Pulse Rate 58 L 64 56 L Respiratory Rate 20 Blood Pressure 151/91 H Pulse Oximetry 95 Oxygen Delivery 12/07/22 18:00 12/07/22 20:48 12/07/22 20:00 Temperature 98.1 F Pulse Rate 63 61 70 Respiratory Rate 18 Blood Pressure 178/93 H Pulse Oximetry 98 Oxygen Delivery 12/07/22 20:00 12/07/22 20:00 12/07/22 22:00 Temperature Pulse Rate 61 58 L Respiratory Rate Blood Pressure Pulse Oximetry 98 Oxygen Delivery Room Air 12/07/22 23:28 12/08/22 00:00 12/08/22 00:00 Temperature 97.8 F Pulse Rate 56 L 52 L Respiratory Rate 20 Blood Pressure 163/93 H
[2022-12-08] MEDS: METOPROLOL TARTRATE 12.5 MG TABLET PO (12:14)
[2022-12-08] MEDS: FOLIC ACID 1 MG TABLET PO (12:14)
[2022-12-08] MEDS: ASPIRIN 81 MG ENTERIC TABLET PO (12:14)
[2022-12-08] MEDS: THIAMINE HCL 100 MG TABLET PO (12:15)
[2022-12-08] MEDS: ENOXAPARIN 40 MG/0.4 ML SYRINGE SUB-Q (12:15)
--- NOTE | 2022-12-08 13:54 | PM.PNCARD ---
Progress Note: A&P Assessment and Plan (1) Chest pain: Qualifiers: Chest pain type: chest pain on breathing Qualified Code(s): R07.1 - Chest pain on breathing Code(s): R07.9 - Chest pain, unspecified Status: Acute Plan Stress echo showed: 1. No abnormal ST/T wave changes diagnostic of ischemia with exercise. However, target heart rate was not met. ? 2. Good functional capacity, achieving 10.6 METs of workload. ? 3. Hypertensive blood pressure response to exercise. ? 4. Normal augmentation of all wall segments without evidence of ischemia with stress. However, target heart rate was not met during stress test. Suboptimal study since target heart rate was not achieved. Patient no longer has any chest pain or other cardiac symptoms. No further inpatient cardiac evaluation, can follow up with us as an outpatient. Okay to discharge home from a cardiac standpoint. Subjective Date/time seen: 12/08/22 13:54 Interval history: Reason for visit: Chest pain HPI: This is a 56-year-old man I am seeing at the request of the hospitalist today for assistance with evaluation and management of chest pain.? He is unknown to me and is not known to have any cardiac problems prior to this admission to the hospital.? He actually has not seen a physician for any medical attention for at least 2 or 3 decades.? 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 The patient has a very physically demanding job working in a [employer].? He carries on heavy activity and manual exertional activities of at work which are generally not unusual for him and he does not provoke any chest pain when he exerts himself.? He was working under the dashboard of a truck and was twisting to get out of under the dashboard have any finished his job and he started to feel some chest pain any when he stood up.? The pain was a sharp substernal sensation that did worsen with deep breathing he became concerned about this later in the day he called his ex- who drove him to the hospital and he was evaluated last night in the emergency room.? By the time he was there he was having this symptom for about 5 or 6 hours.? His electrocardiogram looked benign his troponin levels were negative.? He still has some of this discomfort if he takes a deep breath this morning he otherwise appears to be comfortable and does not have any significant complaints at this time.? He is not known to have hypertension diabetes or dyslipidemia.? He does smoke a pack per day and drinks a 6 pack of beer a day.? He was on no medications at home prior to coming in the hospital Date of service 12/08: Feeling well this morning without any chest pain. Tele unremarkable. Review of Systems Review of Systems: No chest pain. No palpitations. No shortness of breath. Exam Const: General: comfortable and no acute distress HENMT: Mouth: Yes moist mucous membranes Eyes: General: appearance normal, both eyes and all related structures Sclera: sclerae normal Neck: Neck: supple Resp: Effort & Inspection: normal respiratory effort Cardio: Rate: regular rate Rhythm: regular rhythm Skin: General skin exam: normal color Neuro: Speech: normal speech Psych: Mental Status: mental status grossly normal Affect: normal affect Objective Data Vital Signs Vital Signs: Vital Signs - 24 hr 12/07/22 14:00 12/07/22 16:00 12/07/22 16:00 Temperature 36.6 C Pulse Rate 58 L 64 56 L Respiratory Rate 20 Blood Pressure 151/91 H Pulse Oximetry 95 Oxygen Delivery 12/07/22 18:00 12/07/22 20:48 12/07/22 20:00 Temperature 36.7 C Pulse Rate 63 61 70 Respiratory Rate 18 Blood Pressure 178/93 H Pulse Oximetry 98 Oxygen Delivery 12/07/22 20:00 12/07/22 20:00 12/07/22 22:00 Temperature Pulse Rate 61 58 L Respiratory Rate Blood Pressure Pulse Oximetry 98 Oxygen D
--- NOTE | 2022-12-08 14:40 | PM.DS ---
DS: Admitting Diagnosis Discharge Date today Admitting Diagnosis (1) Chest pain: ?Qualifiers: ?Chest pain type:?chest pain on breathing? Qualified Code(s):?R07.1 - Chest pain on breathing ?Code(s): R07.9 - Chest pain, unspecified ?Status:?Acute (2) Tobacco use disorder, continuous: ?Code(s): F17.209 - Nicotine dependence, unspecified, with unspecified nicotine-induced disorders ?Status:?Acute (3) Hypertension: ?Qualifiers: ?Hypertension type:?unspecified? Qualified Code(s):?I10 - Essential (primary) hypertension ?Code(s): I10 - Essential (primary) hypertension ?Status:?Acute (4) Heavy alcohol use: ?Code(s): F10.90 - Alcohol use, unspecified, uncomplicated ?Status:?Acute DS: Discharge Diagnosis Discharge Diagnosis (1) Chest pain: Qualifiers: Chest pain type: chest pain on breathing Qualified Code(s): R07.1 - Chest pain on breathing Code(s): R07.9 - Chest pain, unspecified Status: Acute (2) Tobacco use disorder, continuous: Code(s): F17.209 - Nicotine dependence, unspecified, with unspecified nicotine-induced disorders Status: Acute (3) Hypertension: Qualifiers: Hypertension type: unspecified Qualified Code(s): I10 - Essential (primary) hypertension Code(s): I10 - Essential (primary) hypertension Status: Acute (4) Heavy alcohol use: Code(s): F10.90 - Alcohol use, unspecified, uncomplicated Status: Acute DS: Summary Hospital Course Hospital Course: Per H&P, 56-year-old male with a past medical history of heavy alcohol use and chronic tobacco use who presented to the ER with chest pain.? 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 Today while he was at work he did briefly feel a little lightheaded but did not pass out and did not have chest pain.? A little bit later in the day he was on the floor board of a truck extracting some thing from under the-and when he went to sit up he developed substernal chest pain.? He reported that the pain was 5/10 in intensity.? The pain was worse with deep breathing.? He did not have any diaphoresis nausea or vomiting.? He denied any radiation of the pain.? He has not had any cough or congestion be on his usual smoker's cough.? He denies any fevers or chills.? The pain was constant and did not seem to get any better.? He came to the ER for evaluation.? He received nitroglycerin and morphine.? ER staff reported the patient's pain decreased down to a 2/10 with the nitroglycerin.? However, interestingly enough the patient's medication administration record does not demonstrate any nitroglycerin administration.? The patient did receive aspirin and morphine as well as a GI cocktail.? He denies any reflux symptoms heartburn or dysphagia.? He denies any paroxysmal nocturnal dyspnea orthopnea or lower extremity edema.? Patient was significantly hypertensive in the ER and received 2 doses of metoprolol with improvement in his blood pressures.? The patient denies a known history of hypertension but does not check his blood pressure home and has not seen a doctor in 30 years.? He did report feeling quite anxious before came to the ER and thought that that was well was driving his blood pressure up. The following medication issues have been addressed in in-hospital during hospitalization Chest pain Patient's chest pain was initially however times does more typical chest pain in a patient with multiple cardiac risk factors. Given the initial reported requested cardiology consult for possible angina type picture. Serial troponins have been negative x3. he will likely need to stay until Wednesday for cardiac stress test start the patient on 81 mg enteric-coated aspirin daily for prophylaxis. Appreciate cardiology consultation, stress test is negative Continue aspirin 81 mg daily p.o. Hyperlipidemia hypertriglyceridemia T
== END 2022-12-08 15:34 | disposition home or self-care (01) ==
LOC: ANHED 23:20 → ANHIMU 12-07 02:04
PROVIDERS: Admitting Provider Internal Medicine; Emergency Provider Emergency Medicine; Visit Provider Hospitalist
DX: R07.1 Chest pain on breathing (principal); I10 Essential (primary) hypertension; R42 Dizziness and giddiness; R94.31 Abnormal electrocardiogram [ECG] [EKG]; F10.90 Alcohol use, unspecified, uncomplicated; F17.210 Nicotine dependence, cigarettes, uncomplicated; Z20.822 Contact with and (suspected) exposure to COVID-19; Z82.49 Family history of ischemic heart disease and other diseases of the circulatory system
CPT/HCPCS: 36415; 71045; 71275; 74174; 80053; 80061; 83690; 84443; 84484; 85025; 85610; 85730; 87637; 93005; 93351; 96372; 96374; 99285; A9270; G0378; J1650; J2270; Q9967

== ENCOUNTER 2023-01-04 07:21 | Outpatient (CLI) | payer OTHER, SELFPAY ==
--- NOTE | ~2023-01-04 | CT_ITS ---
EXAMINATION: CT lung screening DATE: 01/04/2023 07:49 INDICATION: HX OF NICOTINE DEPENDENCE TECHNIQUE: Computed tomography (CT) of the chest was performed without intravenous contrast. Addition al 3D reconstructions utilizing coronal maximum intensity projection (MIP) were performed. Automated exposure control and iterative reconstruction technique were employed. The dose-length product was 14 0.63 mGy-cm. COMPARISON: None FINDINGS: Calcified nodules in the right middle and left lower lobes along with calcified right hilar and media stinal lymph nodes consistent with old granulomatous disease. No other suspicious pulmonary nodules i dentified. Mild emphysema in the upper lungs. There are a few persistent scattered subtle patchy grou ndglass opacities most prominent in the posterior upper lobes with no discrete region measuring >3 cm . Given the chronicity and upper lung predominance would favor respiratory bronchiolitis interstitial lung disease, hypersensitivity pneumonitis or residual scarring related to prior infection. No pleur al effusion or pneumothorax. Heart size is normal. No pericardial effusion. Thoracic aorta is normal in caliber. No pathologically enlarged thoracic lymphadenopathy. Visualized upper abdomen is unremark able. Mild thoracic spondylosis. IMPRESSION: 1. Lung-RADS category 2: Benign appearance or behavior. Continue annual screening with noncontrast lo w-dose chest CT in 12 months. Reviewed, dictated and finalized at location A. IMPRESSION: 1. Lung-RADS category 2: Benign appearance or behavior. Continue annual screeni ng with noncontrast low-dose chest CT in 12 months.
== END 2023-01-04 07:22 | disposition home or self-care (01) ==
PROVIDERS: PCP Family Medicine; Visit Provider Nurse Practitioner Adult Health
DX: Z12.2 Encounter for screening for malignant neoplasm of respiratory organs (principal); Z87.891 Personal history of nicotine dependence
CPT/HCPCS: 71271

== ENCOUNTER 2023-09-02 11:56 | Outpatient (CLI) | payer OTHER, SELFPAY ==
--- NOTE | ~2023-09-02 | XR_ITS ---
EXAMINATION: XR cervical spine 4-5V DATE: 09/02/2023 12:15 INDICATION: Left-sided neck pain radiating down the left arm. TECHNIQUE: 5 views of cervical spine were obtained. COMPARISON: None. FINDINGS: There is 6 degrees levocurvature of the cervicothoracic spine. Vertebral body heights are n ormal. There is mildly decreased disc height at C4-C5 and moderately decreased disc height at C5-C6 a nd C6-C7. There is multilevel uncovertebral joint osteoarthritis, severe bilaterally at C5-C6 and C6- C7 and on the left at C4-C5. There is multilevel mild facet joint osteoarthritis. On the left, there is severe facet joint osteoarthritis at C7-T1. There is mild right neural foraminal stenosis at C5-C6 and severe right neural foraminal stenosis at C6-C7. There is mild left neural foraminal stenosis at C6-C7 and C7-T1. There is mild central canal stenosis at C3-C4, C4-C5, C5-C6, and C6-C7. No preverte bral soft tissue swelling. IMPRESSION: 1. Moderate cervical spondylosis. Reviewed, dictated and finalized at location A.
== END 2023-09-02 11:57 | disposition home or self-care (01) ==
LOC: ANHIMG 11:59
PROVIDERS: PCP Family Medicine
DX: M43.02 Spondylolysis, cervical region (principal)
CPT/HCPCS: 72050

== ENCOUNTER 2023-09-22 06:36 | Outpatient (CLI) | payer OTHER, SELFPAY ==
--- NOTE | ~2023-09-22 | CT_ITS ---
EXAMINATION: CT cervical spine wo con DATE: 09/22/2023 06:54 INDICATION: Cervical spondylosis. TECHNIQUE: Computed tomography (CT) of the cervical spine was performed without intravenous contrast. Automated exposure control and iterative reconstruction technique were employed. The dose-length pro duct was 523.88 mGy-cm. COMPARISON: Cervical spine radiographs 09/02/2023 FINDINGS: There is mild emphysema. There is 3 degrees dextrocurvature of cervical spine. There is kyp hosis of cervical spine. Vertebral body heights are normal. There is mildly decreased disc height at C3-C4, moderately decreased disc height at C4-C5 and C5-C6, and severely decreased disc height at C6- C7. The following disc levels are specifically discussed: C2-C3: There is no uncovertebral joint osteoarthritis. There is mild bilateral facet joint osteoarthr itis. There is no neural foraminal stenosis. There is no central canal stenosis. C3-C4: There is severe bilateral uncovertebral joint osteoarthritis. There is moderate right and mild left facet joint osteoarthritis. There is mild bilateral neural foraminal stenosis. There is mild ce ntral canal stenosis. C4-C5: There is mild right and severe left uncovertebral joint osteoarthritis. There is mild bilatera l facet joint osteoarthritis. There is mild bilateral neural foraminal stenosis. There is mild centra l canal stenosis. C5-C6: There is moderate right and mild left uncovertebral joint osteoarthritis. There is mild bilate ral facet joint osteoarthritis. There is mild right neural foraminal stenosis. There is mild central canal stenosis. C6-C7: There is severe bilateral uncovertebral joint osteoarthritis. There is mild bilateral facet magnus int osteoarthritis. There is moderate bilateral neural foraminal stenosis. There is mild central nidhi l stenosis. C7-T1: There is no uncovertebral joint osteoarthritis. There is severe bilateral facet joint osteoart hritis. There is mild left neural foraminal stenosis. There is no central canal stenosis. IMPRESSION: 1. Severe cervical spondylosis. Reviewed, dictated and finalized at location A.
== END 2023-09-22 06:37 | disposition home or self-care (01) ==
PROVIDERS: PCP Family Medicine; Visit Provider Registered Nurse
DX: M47.892 Other spondylosis, cervical region (principal)
CPT/HCPCS: 72125

== ENCOUNTER 2024-09-11 02:33 | Day surgery (SDC) | payer OTHER, SELFPAY ==
[2024-08-31 14:31] VITALS: BMI 27.9
--- OUTSIDE RECORDS SUMMARY | 2024-09-11 02:37 | XMS_ITS | Continuity of Care Document ---
Author Organization [facility] Address [address] [place] [address] [place] [address] Phone Care Team Providers Care Joint Yarner Name Role Phone Agnes Adams Unavailable Unavailable Procedures Procedure Date Remove Eyelid Lesions Post-op Follow-up Visit Removal Of Chalazion Eye Exam, New Patient Advance Directives Directive Yes / No Effective Date File Name No Information Encounters Encounter Description Practice Location Reason(s) For Visit Diagnoses Date Provider Providers Copied on Encounter [facility], [address] [place] [address] [address], [place], [place], [id number], tel:[phone] [facility] No Information 9 Angie Moreno [address] , [address], [place], [place], [facility], [place]. tel:[phone] [facility], [address] [place] [address] [address], [place], [place], [id number], tel:[phone] [facility] No Information 0 9 Angie Moreno [address], [place], [address], [place]. tel:[phone] [facility], [address] [place] [address] [address], [place], [place], [id number], tel:[phone] [facility] No Information 9 Angie Moreno [address] , [address], [place], [address], [place]. tel:[phone] [facility], [address], [place], [place], [id number], [place] tel:[phone] [facility] No Information [phone] Angie Wilsonn. [address] , [address], [place], [address], [place]. tel:[phone] Family History Family Member Type Diagnosis Age At Onset No Information Payers Payer name Insurance type Covered alliance party ID Authoriza tion(s) No Information Social History Type Description Quantity Date Captured Comments Sex Male Smoking Status No Information Chief Complaint And Reason For Visit No Information Reason For Referral Reason For Referral No Information History Of Present Illness Encounter Date Complaint History Of Prese nt Illness No Information Functional Status Date Functional Assessmen t No Information Instructions Date Instruction Additional Infor mation No Information Assessments Type Assessment Date No Information Patient Care Teams Name Effective Dates (start - stop) Status Members No Information
[2024-09-11 09:35] VITALS: BP 138/91; PULSE 80; RESP 18; TEMP 36.6; O2SAT 98; BMI 26.7
[2024-09-11] MEDS: LACTATED RINGERS 1,000 ML 150 ML IV CONT (09:41)
--- NOTE | 2024-09-11 09:53 | P.PNAN_ITS ---
Anes - Initial Pre Proc Eval Procedure: Operation Date: 09/11/24 13:30 Proposed Procedures p Screening Colonoscopy - Rocky Garibay MD Date/Time: 09/11/24 09:53 Surgeon: Rocky Garibay MD Pre Op Diagnosis: screening Patient Data Age: 58 Gender: M Height: 1.68 m Weight: 75.2 kg Last Vital Signs Temp 36.6 C 09/11/24 09:35 Pulse 80 09/11/24 09:35 Resp 18 09/11/24 09:35 BP 138/91 H 09/11/24 09:35 Pulse Ox 98 09/11/24 09:35 O2 Del Method Room Air 09/11/24 09:35 Allergies Allergy/AdvReac Type Severity Reaction Status Date / Time No Known Allergies Allergy Verified 09/11/24 09:34 Home Medications ?Medication ?Instructions ?Recorded ?Confirmed ?Type aspirin 81 mg tablet,delayed 81 mg PO QAM #30 tabs 12/08/22 09/11/24 Rx release atorvastatin 40 mg tablet (Lipitor) 40 mg PO DAILY #30 tabs 12/08/22 09/11/24 Rx folic acid 1 mg tablet 1 mg PO DAILY #30 tabs 12/08/22 09/11/24 Rx metoprolol tartrate 25 mg tablet 12.5 mg (1/2 x 25 mg) PO BID #30 12/08/22 09/11/24 Rx tabs niacin 500 mg capsule,extended 500 mg PO HS #30 caps 12/08/22 09/11/24 Rx release thiamine HCl (vitamin B1) 100 mg 100 mg PO QAM #30 tabs 12/08/22 09/11/24 Rx tablet (Vitamin B-1) losartan 100 mg tablet 100 mg PO DAILY 12/24/23 09/11/24 History Patient hx anesthesia problems: none Family hx anesthesia problems: none Results Review: All pre-operative results and documents have been reviewed as part of the pre- operative evaluation. [facility] Past Medical History Medical History Heavy alcohol use 5 beers a day Tobacco use disorder, continuous Surgical History Surgical History No history of previous surgery Family History Family History Mother , in her late 70s Arthritis Hypertension Heart disease Father , He thinks he in his mid 60s but he is unsure as he was estranged from his father Heart disease reports father passed from unknown cardiac problem Social History Social History Social History: He reports that he is . He lives with his ex-'s mother who is in her 90s. He helps her with work around the house. 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 He has 1 son. He has smoked a pack per day since he was 22 years old. He drinks about 5 beers a day. He denies illicit substance use. Code status: Full code Surrogate decision maker: Merly Agee (ex-) Smoking packs per day: 1 Smoking cigarettes per day: 20.0 Years smoked: 34 Smoking pack-years: 34.00 Smoking status: Current every day smoker Tobacco type: cigarettes Second hand tobacco smoke exposure: No Alcohol intake: current Drinks per week: 12 Alcohol use details: beer Substance use: never Substance use type: does not use Lack of Transportation: No Lack of Food: Never True Current Housing: I Have Housing Concerned About Future Housing: No Difficulty Paying Gas/Electric Bills: No Difficulty Paying for Meds: No Currently Unemployed: No Education: High School Diploma/GED Difficulty w/ Childcare or Family Care: No Living arrangements: with family Spiritual care concerns: No Anes - Eval Final PreProcedure Day of Procedure 09/11/24 09:53 Patient weight: overweight Heart: regular rate and rhythm Lungs: decreased breath sounds Airway: Mallampati scale class II Neurological: alert and oriented Last oral intake: >/= 8 hours ASA classification: III Emergent: no Anesthetic plan: proceed Anesthesia type and monitoring: general GIVS and standard monitoring Results Review: All pre-operative results and documents have been reviewed as part of the pre- operative evaluation. Informed Consent: The patient's anesthetic plan and its attendant risks and benefits were discussed with the patient/family/POA. Questions were solicited and answers provided to the satisfaction of the patient/family/POA.
--- NOTE | 2024-09-11 10:06 | P.HP_ITS ---
History of Present Illness History of Present Illness Consent: Risks, benefits, and alternatives have been discussed and questions answered. Patient agrees to proceed with procedure. Chief complaint: screening Narrative: Nathan Agee is a 58 year old male here for first screening colonoscopy Review of Systems Review of Systems: All systems reviewed & are unremarkable except as noted in HPI and below [facility] Past Medical History Medical History (Updated 09/11/24 @ 10:07 by Rocky Garibay MD) Colon cancer screening Heavy alcohol use 5 beers a day Tobacco use disorder, continuous Surgical History Surgical History No history of previous surgery Family History Family History Mother , in her late 70s Arthritis Hypertension Heart disease Father , He thinks he in his mid 60s but he is unsure as he was estranged from his father Heart disease reports father passed from unknown cardiac problem Social History Social History Social History: He reports that he is . He lives with his ex-'s mother who is in her 90s. He helps her with work around the house. 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 He has 1 son. He has smoked a pack per day since he was 22 years old. He drinks about 5 beers a day. He denies illicit substance use. Code status: Full code Surrogate decision maker: Merly Agee (ex-) Smoking packs per day: 1 Smoking cigarettes per day: 20.0 Years smoked: 34 Smoking pack-years: 34.00 Smoking status: Current every day smoker Tobacco type: cigarettes Second hand tobacco smoke exposure: No Alcohol intake: current Drinks per week: 12 Alcohol use details: beer Substance use: never Substance use type: does not use Lack of Transportation: No Lack of Food: Never True Current Housing: I Have Housing Concerned About Future Housing: No Difficulty Paying Gas/Electric Bills: No Difficulty Paying for Meds: No Currently Unemployed: No Education: High School Diploma/GED Difficulty w/ Childcare or Family Care: No Living arrangements: with family Spiritual care concerns: No Meds Home Medications and Allergies Home Medications ?Medication ?Instructions ?Recorded ?Confirmed ?Type aspirin 81 mg tablet,delayed 81 mg PO QAM #30 tabs 12/08/22 09/11/24 Rx release atorvastatin 40 mg tablet (Lipitor) 40 mg PO DAILY #30 tabs 12/08/22 09/11/24 Rx folic acid 1 mg tablet 1 mg PO DAILY #30 tabs 12/08/22 09/11/24 Rx metoprolol tartrate 25 mg tablet 12.5 mg (1/2 x 25 mg) PO BID #30 12/08/22 09/11/24 Rx tabs niacin 500 mg capsule,extended 500 mg PO HS #30 caps 12/08/22 09/11/24 Rx release thiamine HCl (vitamin B1) 100 mg 100 mg PO QAM #30 tabs 12/08/22 09/11/24 Rx tablet (Vitamin B-1) losartan 100 mg tablet 100 mg PO DAILY 12/24/23 09/11/24 History Allergies Allergy/AdvReac Type Severity Reaction Status Date / Time No Known Allergies Allergy Verified 09/11/24 09:34 Vital Signs Vital Signs - 24 hr 09/11/24 09:35 Temperature 98 F Pulse Rate 80 Respiratory Rate 18 Blood Pressure 138/91 H Pulse Oximetry 98 Oxygen Delivery Room Air Exam Const: General: comfortable and no acute distress HENMT: Face/Nose/Sinus: Normal nares present Eyes: General: appearance normal, both eyes and all related structures Neck: Neck: no JVD Resp: Auscultation: clear to auscultation bilaterally Cardio: Rate: regular rate Rhythm: regular rhythm GI: Inspection: non-distended GI Palp: Yes Soft to palpation Skin: General skin exam: normal color Neuro: General: gait normal Speech: normal speech Extrem: General: normal to inspection Psych: Mental Status: mental status grossly normal Assessment and Plan Assessment and plan (1) Colon cancer screening: Code(s): Z12.11 - Encounter for screening for malignant neoplasm of colon Status: Acute Assessment and Plan: colonoscopy
--- NOTE | 2024-09-11 10:15 | S_PTH ---
PATIENT: Nathan Agee LOC: [facility]#:[id number] AGE/SX: 58/M ROOM: RE09/11/[address]: Rocky Garibay MD : 1965 BED: DIS: 09/11/2024 SPEC #: [id number] RECD: 09/11/24 13:01 STATUS: SHAQUILLE RE #: [id number] CHUNG: 09/11/24 10:[address]: Rocky Garibay DEPT: [facility] Surgical RECD BY: Sofie Waller ENTERED: 09/11/24 13:01 SP TYPE: Surgical OTHR DR: Raheel Matthews MD Tissues: A - Colon Polypectomy B - Colon Polypectomy C - Colon Polypectomy Procedures: Hematoxylin and Eosin Stain Gross and Microscopic Level 4
[2024-09-11 10:21] VITALS: BP 87/66; PULSE 52; RESP 25; O2SAT 93
[2024-09-11 10:31] VITALS: BP 99/63; PULSE 62; RESP 24; O2SAT 95
[2024-09-11 10:41] VITALS: BP 107/74; PULSE 61; RESP 18; O2SAT 97
== END 2024-09-11 10:55 | disposition home or self-care (01) ==
PROVIDERS: PCP Family Medicine; Referring Provider Registered Nurse; Visit Provider Internal Medicine Gastroenterology
PROC: 0DJD8ZZ Inspection of Lower Intestinal Tract, Via Natural or Artificial Opening Endoscopic (ICD-10-PCS; CPT 45378; principal; 2024-09-11 13:30)
DX: Z12.11 Encounter for screening for malignant neoplasm of colon (principal); D12.4 Benign neoplasm of descending colon; D12.3 Benign neoplasm of transverse colon; K63.5 Polyp of colon; K64.8 Other hemorrhoids; F17.210 Nicotine dependence, cigarettes, uncomplicated
CPT/HCPCS: 45385; 88305; J2704; J7120